=== PATIENT | male | born 1970 | race Asian ===

== ENCOUNTER 2016-11-21 23:18 | Inpatient (IN) | payer MEDICARE, OTHER ==
--- NOTE | ~2016-11-21 | EKG ---
PATIENT: ESTER TRAN UNIT #: [id number] Ventricular Rate: 65 BPM Atrial Rate: 65 BPM P-R Interval: 128 ms QRS Duration: 84 ms Q-T Interval: 412 ms QTC Calculation(Bezet): 428 ms P [place]: 53 degrees Calculated R [place]: 61 degrees Calculated T [place]: 73 degrees Diagnosis Line: Normal sinus rhythm Diagnosis Line: RSR' or QR pattern in V1 suggests right Diagnosis Line: ventricular conduction delay Diagnosis Line: Borderline ECG Diagnosis Line: When compared with ECG of 22-NOV-2016 00:06, Diagnosis Line: (unconfirmed) Diagnosis Line: ST elevation now present in Anterior leads Diagnosis Line: Confirmed by JOSE L MERRILL MD ([id number]) on Diagnosis Line: 11/22/2016 10:18:07 PM INTERPRETING MD: DARRION
--- NOTE | ~2016-11-21 | EKG ---
PATIENT: ESTER TRAN UNIT #: [id number] Ventricular Rate: 48 BPM Atrial Rate: 48 BPM P-R Interval: 126 ms QRS Duration: 82 ms Q-T Interval: 442 ms QTC Calculation(Bezet): 394 ms P [place]: 58 degrees Calculated R [place]: 58 degrees Calculated T [place]: 64 degrees Diagnosis Line: Sinus bradycardia Diagnosis Line: Otherwise normal ECG Diagnosis Line: Diagnosis Line: Confirmed by JOSE L MERRILL MD ([id number]) on Diagnosis Line: 11/22/2016 10:16:04 PM INTERPRETING MD: DARRION
--- NOTE | ~2016-11-21 | ST ---
Unit #: [id number] #: [id number] Patient: ESTER TRAN [id number] [address] [address] [id number] I MR#: [id number] NAME: ESTER TRAN : 1970 SEX: M STUDY DATE/TIME: 11/23/2016 UNIT: C3A PCU ROOM: [facility] STUDY DESCRIPTION: Attending Physician: Richa Palencia M.D. Primary Care Physician: Vivi Coyne Aprn CARDIOLOGY REPORT EXAM Cardiac stress test. REASON FOR STUDY Chest pain. PROCEDURE Baseline EKG shows sinus rhythm with a rate of 65 beats per minute with T wave inversion in the septal leads. A total of 0.4 mg of Lexiscan was injected per protocol, followed by Cardiolite. The patient's symptoms were shortness of breath that resolved in recovery. There were no ST-T wave changes or arrhythmias. The test was stopped due to protocol completion. IMPRESSION 1. There are no ST-T wave changes. 2. No arrhythmias. 3. The patient had shortness of breath and a headache that resolved in recovery. 4. Please correlate with Cardiolite imaging. Dictated by... Tatiana Dee A.P.R.N. AM/chun TD: 11/24/2016 09:19 JOB #: [id number] CARDIOLOGY REPORT Page 1 of 1 X Tatiana Dee APRN CARDIOLOGY REPORT
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
--- NOTE | ~2016-11-21 | DS ---
Unit #: [id number] #: [id number] Patient: ESTER TRAN [id number] [address] [place], [place] [address] [id number] I MR#: [id number] NAME: ESTER TRAN ROOM: 318 Age: 46 Sex: M Admission Date: 11/22/2016 : 1970 Discharge Date: 11/23/2016 Attending Physician: Richa Palencia M.D. Primary Care Physician: Vivi Coyne, Instructor Physical DISCHARGE SUMMARY PRINCIPAL DIAGNOSES 1. Atypical chest pain, muscular in origin. 2. Stage 3 left buttock pressure ulcer, present upon admission. 3. Methicillin sensitive Staph aureus infection versus colonization of left buttock wound. 4. Hypotension secondary to dehydration, now resolved. 5. C4 quadriplegia. 6. Chronic pain syndrome, maintained on opiates. 7. Ventricular tachycardia x5 beats. CONSULTANTS Dr. Santamaria - Cardiology. PROCEDURES 1. Two dimensional echocardiogram on November 22, 2016, with normal diastolic function, ejection fraction 50% to 55%. 2. Chest x-ray on November 22, 2016, with cardiomegaly. No other acute findings. 3. CT of the head without contrast on November 22, 2016, with no acute intracranial abnormalities. Mild cerebral atrophy noted. 4. Cardiolite, results which are currently pending. CLINICAL HISTORY/HOSPITAL COURSE Mr. Martin is a nice 46-year-old male who presents to the emergency department with complaints of chest pain. Please refer to H and P for further details. In the emergency department, the patient had negative troponin. He was also complaining about diaphoresis having bilateral hip pain with a chronic left buttock wound that has been present for 17 years to varying degrees. He was subsequently admitted for further evaluation. In regards to patient's chest pain, serial troponins remain negative. Two dimensional echocardiogram was done with the results as noted. The patient has undergone Cardiolite stress test, results of which are currently pending. He did have five beats of ventricular tachycardia. Pulse oximetry was done but results are currently pending. I think this can be followed up by cardiology as an outpatient if Cardiolite is negative. The patient did develop some hypotension the morning of the . He states he is chronically hypotensive at home and it was asymptomatic. However, he was placed on IV fluids and blood pressure has normalized. Will encourage hydration at home. With regards to the patient's buttock wound, this doesn't grossly appear Unit #: [id number] #: [id number] Patient: ESTER TRAN significantly infected. There is a small area of necrosis in the middle which patient states is chronic and will resolve if he maintains pressure off his buttock. I am going to have the wound care nurse evaluate but there is no obvious infection, no obvious drainage. A swab of the wound reveals MSSA. The patient remained afebrile and has been having leukocytosis. It is unclear to me whether this represents more perhaps a colonization given he has been in the hospital in and out versus true infection. I will treat with a short course of Keflex. The patient's other chronic conditions remain stable. I anticipate he can be discharged home later today if his Cardiolite is negative. DISCHARGE CONDITION Stable. DISCHARGE STATUS Discharge to home with home health. DISCHARGE MEDICATIONS 1. Keflex 500 mg p.o. t.i.d. for one week. 2. OxyContin 30 mg p.o. four times daily. DISCHARGE INSTRUCTIONS The patient was instructed to follow a regular diet. He can increase his activity as tolerated and to maintain his fluid intake. The patient is already very familiar with decreasing pressure on that left buttock wound and associated care of the wound. FOLLOWUP The patient will follow up with his primary provider, Vivi Coyne, later this week. Dictated by... Richa Palencia M.D. MARVIN/phylicia TD: 11/24/2016 10:31 JOB #: [id number] DISCHARGE SUMMARY Page 1 of 1 X Richa Palencia MD DISCHARGE SUMMARY
--- NOTE | ~2016-11-21 | CR72 ---
[facility] A Service of [facility] RADIOLOGY TEXT RESULTS PATIENT: ESTER TRAN LOCATION: [facility] 318- : [birth year] UNIT #: [id number] AGE: [address]: Richa Palencia MD SEX: M ORDER DR: [id number] [facility] [address] [facility]. [place], [place] [address] [id number] I MR#: [id number] Acc #: [id number] NAME: ESTER TRAN : 1970 SEX: M STUDY DATE/TIME: 11/22/2016 0:24 UNIT: A [facility] ROOM: [facility] STUDY DESCRIPTION: CR Chest Single View Portable Attending Physician: Richa Palencia M.D. Ordering Physician: Jeri Olivarez M.D. Primary Care Physician: Vivi Coyne Aprn MEDICAL IMAGING REPORT This report is preliminary unless electronic signature is present EXAM Chest x-ray, 11/22/2016. HISTORY 46-year-old male in the ED complaining of new onset chest pain, shortness of air, and diaphoresis beginning today prior to arrival. TECHNIQUE AP portable chest x-ray. FINDINGS The exam shows no active disease in the chest. Dapc-eu-erqvdxgs cardiomegaly stable. Pulmonary vascularity is normal. The lungs appear clear. Spinal curvature. No change since 05/07/2014. IMPRESSION No active disease. Stable cardiomegaly. No change since 05/07/2014. Dictated by... Alexander Hernandze M.D. THIS IS AN ELECTRONICALLY VERIFIED REPORT Alexander Hernandez M.D. at 11/22/2016 9:55 PM RGW/thomas TD: 11/22/2016 10:19 JOB #: [id number] MEDICAL IMAGING REPORT Page 1 of 1 COPY
--- NOTE | ~2016-11-21 | CT71 ---
[facility] A Service of [facility] RADIOLOGY TEXT RESULTS PATIENT: ESTER TRAN LOCATION: [facility] : [birth year] UNIT #: [id number] AGE: [address]: Richa Palencia MD SEX: M ORDER DR: [id number] [address] [place], [place] [address] [id number] I MR#: [id number] Acc #: [id number] NAME: ESTER TRAN : 1970 SEX: M STUDY DATE/TIME: 11/22/2016 3:59 UNIT: A PCU ROOM: [facility] STUDY DESCRIPTION: CT Head Wo Contrast Attending Physician: Richa Palencia M.D. Ordering Physician: Angie Francisco M.D. Primary Care Physician: Vivi Coyne Aprn MEDICAL IMAGING REPORT This report is preliminary unless electronic signature is present EXAM CT head, noncontrast, 11/22/2016. HISTORY 46-year-old male hospital inpatient with sudden onset frontal headache. Weakness and chest pain. TECHNIQUE CT examination of the head without IV contrast. This CT exam was performed with one or more of the following radiation dose reduction techniques: automatic exposure control, adjustment of mA and/or kV according to patient size, and iterative reconstruction. COMPARISON CT head, 12/21/2013. FINDINGS No acute intracranial abnormality is demonstrated. Mild generalized cerebral atrophy, greatest in the frontal regions. No evidence of intracranial hemorrhage, cerebral edema, mass effect or hydrocephalous. No significant change since the prior exam. IMPRESSION 1. No acute intracranial abnormality. 2. Mild cerebral atrophy. 3. No change since 01/17/2014. Dictated by... Alexander Hernandez M.D. [facility] A Service [facility] RADIOLOGY TEXT RESULTS PATIENT: ESTER TRAN LOCATION: [facility] 318- : 74 UNIT #: [id number] AGE: [address]: Richa Palencia MD SEX: M ORDER DR: THIS IS AN ELECTRONICALLY VERIFIED REPORT Alexander Hernandez M.D. at 11/22/2016 9:56 PM SEBASW/thomas TD: 11/22/2016 12:19 JOB #: [id number] MEDICAL IMAGING REPORT Page 1 of 1 COPY
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
--- NOTE | ~2016-11-21 | TH ---
Unit #: [id number] #: [id number] Patient: ESTER TRAN [id number] [address] [address] [id number] MR#: [id number] NAME: ESTER TRAN : 1970 SEX: M STUDY DATE/TIME: 11/23/2016 UNIT: [id number] PCU ROOM: [facility] STUDY DESCRIPTION: Attending Physician: Richa Palencia M.D. Primary Care Physician: Vivi Coyne Aprn CARDIOLOGY REPORT EXAM Lexiscan Cardiolite stress test, nuclear portion. PROCEDURE Using technetium 99m labeled Cardiolite, rest and stress SPECT images were obtained. Multiple SPECT images were obtained in various views including horizontal and vertical long axis and short axis views of the left ventricle. Images were obtained by gated SPECT method. The patient was administered 10.77 mCi of Cardiolite at rest. The patient was administered 29.4 mCi of Cardiolite after Lexiscan infusion was completed. On the stress images, there is a small area of mild decreased isotope activity in the anteroapical wall. The rest images show normal perfusion. Comparing rest and stress images, a small area of stress-induced ischemia involving the anteroapical wall of the left ventricle cannot be ruled out. The left ventricular ejection fraction is calculated to be 58%. There is no focal wall motion abnormality seen. CONCLUSION 1. A small area of possible stress-induced ischemia involving the anteroapical wall of the left ventricle cannot be ruled out. 2. The left ventricular ejection fraction is calculated to be 58%. 3. There is no focal wall motion abnormality seen. 4. Technically limited study due to increased gut uptake. Clinical correlation is requested. Dictated by... Rebecca Aguilar TD: 11/23/2016 16:10 JOB #: [id number] Unit #: [id number] #: [id number] Patient: ESTER TRAN CARDIOLOGY REPORT Page 1 of 1 X Vandana Abdi MD <ELECTRONICALLY SIGNED> 01/09/17 1429 CARDIOLOGY REPORT
[~2016-11-21 23:18] MED LIST: AMBIEN PO; CELEXA20 MG PO; CIPRO PO; CYMBALTA PO; DISCONTINUED MED; DITROPAN XL PO; KLONOPIN0.5 MG PO; NITROFURANTOIN100 M3 PO; NYSTATIN-TRIAMC15 G1 TP; OXYCODON HCL-AP1 TA2 PO; OXYCODONE HCL10 M1 PO; OXYCODONE HCL10 MG PO; OXYCODONE HCL30 MG PO; OXYCONTIN10 MG PO; OXYCONTIN30 MG PO; PERCOCET 10/3251 TAB PO; PHENERGAN25 MG PO; TYLOX1 CAP 5/50 PO; VANTIN200 MG PO; VESICARE
[2016-11-22 00:47] LABS: BASOPHIL% 0.6 % (0-2.5); EOSINOPHIL# 0.2 X10e3 (0-0.7); EOSINOPHIL% 2.2 % (0.0-7.0); HEMATOCRIT 41.7 % (38.0-50.0); HEMOGLOBIN 13.7 gm/dL (13.0-16.0); LYMPHOCYTE# 2.2 X10e3 (1.0-3.5); LYMPHOCYTE% 26.5 % (17.0-45.0); MEAN CELL VOLUME 87.8 FL (83-96); MEAN CORPUSCULAR HEMOGLOBIN 28.9 PG (28-34); MEAN CORPUSCULAR HGB CONC 32.9 g/dL (30-36); MEAN PLATELET VOLUME 8.4 FL (6.5-11.5); MONOCYTE# 0.4 X10e3 (0-1.0); MONOCYTE% 5.3 % (3.0-12.0); NEUTROPHIL# 5.5 X10e3 (1.5-7.1); NEUTROPHIL% 65.4 % (40-75); PLATELET COUNT 235 X10e3 (140-420); RED BLOOD COUNT 4.75 X10e (3.90-5.60); RED CELL DISTRIBUTION WIDTH 13.8 % (11.0-15.5); WHITE BLOOD COUNT 8.4 X10e3 (4.0-10.5)
[2016-11-22 00:49] LABS: DIFF IND NO
[2016-11-22 01:01] LABS: INR 1.1; PARTIAL THROMBOPLASTIN TIME 30.1 SECONDS (23.5-31.3); PROTHROMBIN TIME (PATIENT) 11.4 SECONDS (9.6-11.5)
[2016-11-22 01:09] LABS: POC - CKMB <1.0 ng/mL (0.0-7.9); POC - TROPONIN <0.05 ng/mL (<=0.05)
[2016-11-22 01:15] LABS: BILIRUBIN, DIRECT 0.2 mg/dL (0.0-0.2); BILIRUBIN,INDIRECT 0.4 mg/dL (0.0-0.9); BILIRUBIN,TOTAL 0.6 mg/dL (0.2-2.0); BUN/CREATININE RATIO 18.33; CALCIUM SERUM 9.2 mg/dL (8.4-10.2); CREATININE SERUM 0.6 mg/dL (0.6-1.4); GLOM FILT RATE Estimated 122.3 mL/min (>60); PROTEIN TOTAL SERUM 7.9 g/dL (6.0-8.3)
[2016-11-22 06:56] LABS: URINE APPEARANCE CLOUDY; URINE BILIRUBIN NEG (NEG); URINE COLOR YELLOW; URINE GLUCOSE NORM (NORM); URINE KETONE NEG (NEG); URINE LEUKOCYTE ESTERASE 1+ (NEG); URINE NITRATE POS (NEG); URINE PROTEIN 1+ (NEG); URINE UROBILINOGEN NORM (NORM)
[2016-11-22 07:20] LABS: URINE BLOOD NEG (NEG)
[2016-11-22 07:21] LABS: URBCS1 AUWI 0-2 /[HPF] (0-2); URINE AMORPHOUS SEDIMENT AMORP PHOSPHATES; URINE BACTERIA AUWI 3+ (NEGATIVE); URINE CRYSTALS CALCIUM OXALATE /[HPF]
[2016-11-22 09:14] LABS: CK TOTAL 49 IU/L (36-174)
[2016-11-22 10:03] LABS: CHOLESTEROL 104 mg/dL (0-200); HDL CHOLESTEROL 32 mg/dL (29-75); LDL CHOLESTEROL 56 mg/dL (-130); LDL/HDL RATIO 2 RATIO (0-4); TRIGLYCERIDES 82 mg/dL (10-160)
[2016-11-22 16:05] LABS: CK TOTAL 55 IU/L (36-174)
[2016-11-23 08:02] LABS: HEMOGLOBIN 11.8 gm/dL (13.0-16.0); MEAN CELL VOLUME 88.4 FL (83-96); MEAN CORPUSCULAR HEMOGLOBIN 28.9 PG (28-34); MEAN CORPUSCULAR HGB CONC 32.7 g/dL (30-36); MEAN PLATELET VOLUME 8.3 FL (6.5-11.5); RED BLOOD COUNT 4.07 X10e (3.90-5.60); RED CELL DISTRIBUTION WIDTH 13.5 % (11.0-15.5); WHITE BLOOD COUNT 5.9 X10e3 (4.0-10.5)
[2016-11-23 08:34] LABS: CALCIUM SERUM 8.5 mg/dL (8.4-10.2); CREATININE SERUM 0.3 mg/dL (0.6-1.4); GLOM FILT RATE Estimated 162.7 mL/min (>60); POTASSIUM 3.7 mmol/L (3.5-5.1)
[2016-11-23] MEDS ORDERED: KEFLEX500 M1 PO (15:13)
== END 2016-11-23 17:39 | disposition home health service (06) | DRG 313 ==
LOC: CED 23:18 → CEDOF 11-22 01:20 → C3A PCU 11-22 01:20 → CEDOF 11-22 01:25 → CED 11-22 01:25 → CEDOF 11-22 02:46 → C3A PCU 11-22 02:46
PROVIDERS: Emergency Medicine; Internal Medicine; Nurse Practitioner
PROC: B24BYZZ Ultrasonography of Heart with Aorta using Other Contrast (ICD-10-PCS; principal; 2016-11-22)
DX: R07.89 Other chest pain (principal); I47.2 Ventricular tachycardia; G82.50 Quadriplegia, unspecified; L89.323 Pressure ulcer of left buttock, stage 3; I95.9 Hypotension, unspecified; F11.20 Opioid dependence, uncomplicated; E86.0 Dehydration; L08.89 Other specified local infections of the skin and subcutaneous tissue; G89.4 Chronic pain syndrome; B95.61 Methicillin susceptible Staphylococcus aureus infection as the cause of diseases classified elsewhere; Z87.891 Personal history of nicotine dependence; R00.1 Bradycardia, unspecified; G47.33 Obstructive sleep apnea (adult) (pediatric)
CPT/HCPCS: 36415; 70450; 71010; 78452; 80048; 80061; 80076; 81003; 82550; 82553; 83880; 84443; 84484; 85025; 85027; 85610; 85730; 87070; 87077; 87186; 87205; 93005; 93017; 93306; 94760; 94762; 96365; 96375; 99285; A9500; J1650; J2270; J2405; J2543; J2785; J3370